=== PATIENT | female | born 1965 | race Caucasian/White ===

== ENCOUNTER → 2016-12-14 | Outpatient (CLI) | payer BC | LOC: EMI 12-13 10:00 → KOH-I 09:22 → EMI 12-24 14:00 | DX: G35 Multiple sclerosis (principal); M50.222 Other cervical disc displacement at C5-C6 level | CPT/HCPCS: 70553; 72156; A9577 ==

== ENCOUNTER → 2016-12-24 | Outpatient (CLI) | payer BC, OTHER ==
[~2016-12-24] VITALS: Ht 170.2 cm; Wt 68.0 kg
== END ==
LOC: OPSV 12-06 10:00
DX: G35 Multiple sclerosis (principal)
CPT/HCPCS: 96365; J2323; J7050

== ENCOUNTER → 2017-01-23 | Outpatient (CLI) | payer BC, OTHER ==
[~2017-01-23] VITALS: Ht 170.2 cm; Wt 68.0 kg
== END ==
LOC: OPSV 09:49
DX: G35 Multiple sclerosis (principal)
CPT/HCPCS: 96365; J2323; J7050

== ENCOUNTER → 2017-02-20 | Outpatient (CLI) | payer BC, OTHER ==
[~2017-02-20] VITALS: Ht 170.2 cm; Wt 68.0 kg
== END ==
LOC: OPSV 09:42
DX: G35 Multiple sclerosis (principal)
CPT/HCPCS: 96365; J2323; J7050

== ENCOUNTER → 2021-03-23 | Outpatient (CLI) | payer BC ==
[~2021-03-23] VITALS: Ht 170.2 cm; Wt 72.6 kg
[2021-03-23 10:23] LABS: HEMOGLOBIN 13.8 gm/dl (12.3-15.3); RED BLOOD COUNT 4.32 M/UL (4.00-5.10); WHITE BLOOD COUNT 4.9 K/UL (4.5-11.0)
[2021-03-23 10:42] LABS: BUN/CREATININE RATIO 14 (0-10)
== END ==
LOC: OPSV 09:00
PROVIDERS: Psychiatry & Neurology Neurology
DX: G35 Multiple sclerosis (principal)
CPT/HCPCS: 36415; 80053; 85025; 96365; 96366; J2350; J7030

== ENCOUNTER → 2021-10-31 | Outpatient (CLI) | payer BC | LOC: OPSV 09-21 09:00 | DX: G35 Multiple sclerosis (principal) | CPT/HCPCS: 96375; 96413; 96415; J2350; J7030 ==

== ENCOUNTER → 2022-04-30 | Outpatient (CLI) | payer BC ==
[~2022-04-30] VITALS: Ht 170.2 cm; Wt 72.6 kg
== END ==
LOC: OPSV 09:00
DX: G35 Multiple sclerosis (principal)
CPT/HCPCS: 96375; 96413; 96415; J2350; J2930; J7030